=== PATIENT | female | born 1985 | race Caucasian/White ===

== ENCOUNTER 2017-10-27 17:56 | Observation (INO) | payer OTHER ==
--- NOTE | 2017-10-27 18:06 | PDOC ---
Rapid Medical Evaluation Time Seen by Provider: 10/27/17 18:01 Medical Evaluation: 10/27/17 18:04 I have performed a brief in-person evaluation of this patient. The patient presents with a chief complaint of: epigastric pain that radiates to right flank area with vomiting after eating tortilla that she bought in the store 3 hours ago. Reports vomiting x 4. Denies dysuria Pertinent physical exam findings are: NAD crying in triage +epigastric tenderness I have ordered the following: urine preg, urinalysis, labs, iv access The patient will proceed o the Ed for further evaluation.
[2017-10-27] MEDS ORDERED: ONDANSETRON 4 MG/2 ML VIAL IVPB ONE (18:07)
[2017-10-27] MEDS ORDERED: SODIUM CHLORIDE 1,000 ML IV STA (18:07)
[2017-10-27] MEDS ORDERED: ONDANSETRON 4 MG/2 ML VIAL ONE (18:39)
[2017-10-27] MEDS ORDERED: PANTOPRAZOLE SODIUM 40 MG VIAL IVPUSH ONE (18:44)
[2017-10-27] MEDS ORDERED: morphine CARPU-JECT 2 MG/1 ML DISP.SYRIN IVPUSH ONE (18:46)
[2017-10-27] MEDS ORDERED: morphine SULFATE 4 MG/ML VIAL ONE ×2 (18:57→20:50)
[2017-10-27] MEDS ORDERED: PANTOPRAZOLE SODIUM 40 MG/100 ML BAG IVPB ONE (18:58)
--- NOTE | 2017-10-27 18:58 | PDOC ---
Attending Attestation - HPI HPI: 10/27/17 19:46 The patient is a 32-year-old female, with no past medical history, who presents to the ED with right upper quadrant abdominal pain, nausea, and vomiting that began 3 hours prior to presentation. LMP was 1 week ago. - Physicial Exam PE: 10/27/17 19:48 GENERAL: (+)Clearly uncomfortable, dry heaving. Awake, alert, and fully oriented. HEAD: No signs of trauma EYES: PERRLA, EOMI, sclera anicteric, conjunctiva clear ENT: Auricles normal inspection, hearing grossly normal, nares patent, oropharynx clear without exudates. Moist mucosa NECK: Normal ROM, supple, no lymphadenopathy, JVD, or masses LUNGS: Breath sounds equal, clear to auscultation bilaterally. No wheezes, and no crackles HEART: Regular rate and rhythm, normal S1 and S2, no murmurs, rubs or gallops ABDOMEN: (+)RUQ tenderness and +Hadley's sign. No CVA tenderness. Soft, normoactive bowel sounds. No guarding, no rebound. No masses. EXTREMITIES: Normal range of motion, no edema. No clubbing or cyanosis. No cords, erythema, or tenderness NEUROLOGICAL: Cranial nerves II through XII grossly intact. Normal speech, normal gait SKIN: Warm, Dry, normal turgor, no rashes or lesions noted. <Meggan Bautista - Last Filed: 10/27/17 19:46> - Resident Resident Name: BishopEdwardo - ED Attending Attestation I have performed the following: I have examined & evaluated the patient, The case was reviewed & discussed with the resident, I agree w/resident's findings & plan, Exceptions are as noted - Medical Decision Making 10/27/17 18:54 I, Dr. Lenora Linares, DO, attest that this document has been prepared under my direction and personally reviewed by me in its entirety. I further attest, that it accurately reflects all work, treatment, procedures and medical decision -making performed by me. 10/27/17 18:55 32yo female with RUQ pain assoc with n/v -hx of similar 4 months ago in [place] -was eating tortilla today when the pain started -actively vomiting in the room -will send labs -bedside ultrasound + gallstones, +sonographic murphys -concern for acute avinash -will discuss with surgery pending official ultrasound and labs -will medicate for pain, nausea, npo, ivf hydration 10/27/17 20:26 pt with gallstones and sonographic murphys 10/27/17 20:26 family updated abx ordered pt to OR <Lenora Linares - Last Filed: 10/27/17 20:27> Attestations - Attestations Physician Attestation: 10/27/17 19:50 Documentation prepared by Meggan Bautista, acting as chief medical physicist for Lenora Linares DO. <Meggan Bautista - Last Filed: 10/27/17 19:46>
--- NOTE | 2017-10-27 18:58 | PDOC ---
History of Present Illness - General Chief Complaint: Pain, Acute Stated Complaint: NAUSEA/VOMITING Time Seen by Provider: 10/27/17 18:01 History Source: Patient, Spouse Exam Limitations: Language Barrier (Pt Upper Sorbian speaking only. Member of staff interpreted.) - History of Present Illness Travel History: Yes ([place]) Initial Comments: 32 y/o female presenting to [facility] ER via private auto complaining of epigastric and RUQ pain with nausea and vomiting. Symptoms started suddenly approx. 3 hours ago while pt was cleaning her house. Pain has increased in intensity in the interim. No radiation to back. Endorses burning sensation into throat and mouth, as well as chills without fever or diaphoresis. Vomiting described as nonbloody and nonbilious. No constipation or diarrhea. No urinary symptoms. Trialed PO Aleve prior to arrival without relief. H/o similar in [place] four months ago, was evaluated by physician but not given a diagnosis. Surgical history significant for and appendectomy. LMP: 10/20/2017 Medical Hx: Pt denies past medical history. Denies prescription medications. No herbal or other supplements. Surgical Hx: - x1 - Appendectomy Past History - Past Medical History Allergies/Adverse Reactions: Allergies Allergy/AdvReac Type Severity Reaction Status Date / Time No Known Allergies Allergy Verified 10/27/17 18:03 Home Medications: Ambulatory Orders Naproxen Sodium [Aleve] 220 mg PO ONCE 10/27/17 COPD: No - Suicide/Smoking/Psychosocial Hx Smoking History: Never smoked Review of Systems - Review of Systems Constitutional: Yes: Chills. No: Diaphoresis, Fever Respiratory: Yes: Shortness of Breath Cardiac (ROS): Yes: Chest Pain, Lightheadedness ABD/GI: Yes: Vomiting, Indigestion, Abdominal cramping. No: Constipated, Diarrhea, Rectal Bleeding, Tarry Stools : No: Burning, Dysuria, Flank Pain Musculoskeletal: No: Back Pain Integumentary: No: Bruising, Rash, Sweating Neurological: Yes: Paresthesia Hematologic/Lymphatic: No: Easy Bleeding, Easy Bruising *Physical Exam - Vital Signs Last Vital Signs Temp Pulse Resp BP Pulse Ox 97.8 F 102 H 36 H 136/53 98 10/27/17 18:04 10/27/17 18:04 10/27/17 18:04 10/27/17 18:04 10/27/17 18:04 - Physical Exam Comments: Constitutional: Well-developed, well-nourished female in obvious discomfort. Found semi-fowlers in hospital bed. Alert and oriented x4. Answered all questions appropriately and completely. Actively retching and vomiting in room. Nonbloody emesis in bag. HEENT: Normocephalic. No obvious external signs of trauma. Hearing grossly normal. No nasal discharge. No scleral icterus. Conjunctiva moist and not injected. Neck is supple, trachea is midline. Cardiovascular: Tachycardic rate and regular rhythm. No murmur, rubs, clicks, or gallops. Peripheral pulses: Radial pulses full. Respiratory: Tachypnea. Equal chest rise and fall. Clear to auscultation bilaterally. No stridor, no wheezing, no rhonchi. Gastrointestinal: abdomen is tender in epigastric and RUQ regions with guarding. + murphys. No RLQ tenderness. No overlying skin lesions. No pulsatile masses. Neuro: Alert and oriented. Moving all four extremities spontaneously. Skin: Warm, dry, and intact. No bruising, rashes, or other lesions. : No R or L CVA tenderness. Psych: Affect: appropriate. Mood: normal. ED Treatment Course - LABORATORY CBC & Chemistry Diagram: 10/27/17 18:48 10/27/17 18:48 - RADIOLOGY Radiology Studies Ordered: Category Date Time Status GALLBLADDER US [US] Stat Ultrasound 10/27/17 18:44 Ordered - Medications Given in the ED: ED Medications Discontinued Medications Generic Name Dose Route Start Last Admin Trade Name Malcom PRN Reason Stop Dose Admin Ondansetron HCl 4 mg 10/27/17 18:07 10/27/17 18:55 Zofran Injection IVPB 10/27/17 18:08 4 mg ONCE ONE Administration Medical Decision Making - Medical Decision Making *Reviewed nursing notes and prior visit documentation. 32 y/o female complaining of sudden onset RUQ pain with nausea/vomiting x3 hrs. H/o similar 4 months ago w/o diagnosis. Afebrile. Vitals remarkable for tachycardia without hypotension. RUQ tenderness with positive [place] sign. Suspect cholecystitis given physical exam findings. D/D to include ectopic, choledocolethiasis, hepatitis, pancreatitis, gastritis, and PUD. Biliary U/S, CBC, CMP, Lipase, Upreg, UA, PT, PTT, and T/S ordered. Morphine, Zofran, Pepcid , and NS IVFB ordered for symptom relief. Cholelithysis noted on POCUS. Formal Biliary U/S: Cholelithiasis with positive sonographers Hadley sign. GB is normal size CBC unremarkable for leukocytosis. BMP unremarkable for electrolyte derangement or LFT elevation. Lipase not elevated. UA unremarkable for pyuria, nitrites, or leukocyte esterase. Suspect cholecystitis. Pt requested evaluation by surgeon Dr. Chery. He agrees to evaluate the pt. Dr. Chery will admit pt for OR procedure. Requested Cefoxitin 2g and maintenance fluid. *DC/Admit/Observation/Transfer Diagnosis at time of Disposition: Cholecystitis with cholelithiasis Qualifiers: Cholelithiasis location: gallbladder Cholecystitis acuity: unspecified acuity Biliary obstruction: without biliary obstruction Qualified Code(s): K80.10 - Calculus of gallbladder with chronic cholecystitis without obstruction - Discharge Dispostion Condition at time of disposition: Fair - Referrals - Patient Instructions - Post Discharge Activity
[2017-10-27 19:06] LABS: BASO % 0.4 % (0-2.0); EOS % 1.6 % (0-4.5); HEMATOCRIT 38.4 % (32.4-45.2); HEMOGLOBIN 12.7 GM/dL (10.7-15.3); LYMPH % 32.4 % (8-40); MCH 27.7 pg (25.7-33.7); MEAN CELL VOLUME 83.9 fl (80-96); MEAN PLT VOLUME 9.7 fl (7.5-11.1); MONO % 5.4 % (3.8-10.2); NEUT % 60.2 % (42.8-82.8); PLATELET COUNT 250 K/MM3 (134-434); RBC 4.58 M/mm3 (3.60-5.2); RDW 14.1 % (11.6-15.6); WHITE BLOOD COUNT 9.1 K/mm3 (4.0-10.0)
[2017-10-27 19:20] LABS: URINE APPEARANCE CLEAR; URINE BILIRUBIN NEGATIVE (<2.0 mg/dL); URINE COLOR STRAW; URINE GLUCOSE (UA) NEGATIVE (NEGATIVE); URINE KETONE NEGATIVE (NEGATIVE); URINE LEUK ESTERASE NEGATIVE (NEGATIVE); URINE NITRITE NEGATIVE (NEGATIVE); URINE PROTEIN NEGATIVE (NEGATIVE); URINE UROBILINOGEN NEGATIVE mg/dL (0.2-1.0)
[2017-10-27 19:21] LABS: HCG,QUALITATIVE URINE Negative
[2017-10-27 19:50] LABS: ALBUMIN 3.7 g/dl (3.4-5.0); ANION GAP 13 MMOL/L (8-16); BILIRUBIN,TOTAL 0.7 mg/dL (0.2-1.0); BLOOD UREA NITROGEN 9 mg/dL (7-18); CALCIUM 9.2 mg/dL (8.5-10.1); CHLORIDE 112 mmol/L (98-107); CO2 18 mmol/L (21-32); CREATININE 0.8 mg/dL (0.55-1.02); GLUCOSE,RANDOM 92 mg/dL (74-106); LIPASE 128 U/L (73-393); SGOT/AST 30 U/L (15-37); SGPT/ALT 32 U/L (12-78); SODIUM 143 mmol/L (136-145); TOT PROT 7.5 g/dl (6.4-8.2)
[2017-10-27 19:51] LABS: ALK PHOS 66 U/L (45-117)
[2017-10-27] MEDS ORDERED: CEFOXITIN SODIUM 2 GM in DEXTROSE 5%-WATER - 100 ML IVPB ONE (20:22)
[2017-10-27] MEDS ORDERED: SODIUM CHLORIDE 1,000 ML IV SCH (20:30)
[2017-10-27] MEDS ORDERED: morphine CARPU-JECT 4 MG/1 ML DISP.SYRIN IVPUSH ONE (20:37)
[2017-10-27] MEDS ORDERED: IBUPROFEN 600 MG TABLET (FP) PO PRN (20:39)
[2017-10-27] MEDS ORDERED: ONDANSETRON 4 MG/2 ML VIAL IVPUSH PRN (20:39)
[2017-10-27] MEDS ORDERED: ACETAMINOPHEN 325 MG TABLET (FP) PO PRN (20:39)
[2017-10-27] MEDS ORDERED: morphine CARPU-JECT 2 MG/1 ML DISP.SYRIN IVPUSH PRN ×2 (20:39→20:50)
--- NOTE | 2017-10-27 20:57 | HP ---
Admitting History and Physical - Admission Chief Complaint: abdominal pain History of Present Illness: 32 yo female no significant PMH presents to the ED with right upper quadrant abdominal pain, nausea, and vomiting that began 3 hours prior to presentation. She was seen at [facility] days ago but was sent home on antibiotics. She had recurrence of her abdominal pain after every meal. She denied fever and chills. She has a history of gallstones. She had a previous cesarian section but justice other abdominal surgeries. LMP was 1 week ago. We were asked to assess. History Source: Patient, Medical Record Limitations to Obtaining History: No Limitations - Smoking History Smoking history: Never smoked - Alcohol/Substance Use Hx Alcohol Use: No History of Substance Use: reports: None - Social History Usual Living Arrangement: Yes: With Spouse, With Significant Other, With Child ADL: Independent History of Recent Travel: No Home Medications - Allergies Allergies/Adverse Reactions: Allergies Allergy/AdvReac Type Severity Reaction Status Date / Time No Known Allergies Allergy Verified 10/27/17 18:03 - Home Medications Home Medications: Ambulatory Orders Naproxen Sodium [Aleve] 220 mg PO ONCE 10/27/17 Review of Systems - Review of Systems Constitutional: denies: Chills, Fever HENT: denies: Difficult Swallowing, Toothache Neck: denies: Decreased ROM, Pain on Movement Cardiovascular: denies: Chest Pain, Palpitations Respiratory: denies: Cough, SOB Gastrointestinal: reports: Abdominal Pain, Bloating, Indigestion Genitourinary: denies: Discharge, Dysuria Breasts: reports: No Symptoms Reported. denies: Pain Integumentary: denies: Blister, Bruising, Rash, Wound Neurological: denies: Seizure, Syncope Endocrine: denies: Unexplained Weight Gain, Unexplained Weight Loss Hematology/Lymphatic: denies: Easily Bruised, Excessive Bleeding Psychiatric: denies: Anxiety, Depression Physical Examination Vital Signs: Vital Signs Temperature 97.8 F 10/27/17 18:04 Pulse Rate 102 H 10/27/17 18:04 Respiratory Rate 36 H 10/27/17 18:04 Blood Pressure 136/53 10/27/17 18:04 O2 Sat by Pulse Oximetry (%) 98 10/27/17 18:04 Vital Signs Period Temp Pulse Resp BP Sys/Mathew Pulse Ox Last 24 Hr 97.4 F-98.6 F 60-102 17-36 93-136/53-69 98-98 Constitutional: Yes: Well Nourished, No Distress, Calm Eyes: Yes: Conjunctiva Clear, EOM Intact HENT: Yes: Atraumatic, Normocephalic Neck: Yes: Supple, Trachea Midline Cardiovascular: Yes: Regular Rate and Rhythm, S1, S2 Respiratory: Yes: Regular, CTA Bilaterally Gastrointestinal: Yes: Normal Bowel Sounds, Soft, Tenderness (RUQ +, negative murphys). No: Tenderness, Epigastrium, Tenderness, Rebound ...Rectal Exam: Yes: Deferred Renal/: No: CVA Tenderness - Left, CVA Tenderness - Right Musculoskeletal: No: Muscle Pain, Muscle Weakness Extremities: No: Cool, Cyanosis Edema: No Peripheral Pulses WNL: Yes Peripheral Pulses: Left Radial: 2+, Right Radial: 2+, Left Doralis Pedis: 2+, Right Dorsalis Pedis: 2+ Wound/Incision: Yes: Clean/Dry, Well Approximated Neurological: Yes: Alert, Oriented Psychiatric: Yes: Alert, Oriented Labs: CBC, BMP 10/27/17 18:48 10/27/17 18:48 Imaging - Results Ultrasound: Report Reviewed, Image Reviewed (Gallstones with) Problem List - Problems (1) Acute cholecystitis with chronic cholecystitis Assessment/Plan: 32yo female with acute on chronic calculus cholecystitis NPO and IVF hydration IV antibiotics Discussed with patient risks, benefits and alternatives of laparoscopic possible open cholecystectomy, including but not limited to bleeding, infection , injury to adjacent structures, leak or injury, intraabdominal abscess, incisional hernia, need for further procedures, ; alternatives include antibiotics, delayed or no surgery - risks of this include failure of nonoperative therapy, perforation, sepsis, recurrence, . Patient desires to proceed with operation - will take to OR for above. Informed consent signed for same. Code(s): K81.2 - ACUTE CHOLECYSTITIS WITH CHRONIC CHOLECYSTITIS (2) Calculus of gallbladder with acute on chronic cholecystitis Code(s): K80.12 - CALCULUS OF GB W ACUTE AND CHRONIC CHOLECYST W/O OBSTRUCTION Qualifiers: Biliary obstruction: without biliary obstruction Qualified Code(s): K80.12 - Calculus of gallbladder with acute and chronic cholecystitis without obstruction (3) Cholelithiasis Code(s): K80.20 - CALCULUS OF GALLBLADDER W/O CHOLECYSTITIS W/O OBSTRUCTION Qualifiers: Cholelithiasis location: gallbladder Cholecystitis presence: with cholecystitis Cholecystitis acuity: acute and chronic Biliary obstruction: without biliary obstruction Qualified Code(s): K80.12 - Calculus of gallbladder with acute and chronic cholecystitis without obstruction (4) Abdominal pain in female Code(s): R10.9 - UNSPECIFIED ABDOMINAL PAIN
[2017-10-27] MEDS ORDERED: morphine SULFATE 4 MG/ML VIAL IVPUSH PRN (20:58)
[2017-10-27] MEDS ORDERED: LACTATED RINGERS SOLUTION 1,000 ML IV SCH (21:00)
[2017-10-27] MEDS: LACTATED RINGERS SOLUTION 1,000 ML IV SCH ×2 (21:27→21:29)
[2017-10-27 21:56] LABS: INR 1.05 (0.83-1.09); PROTHROMBIN TIME (PATIENT) 11.9 SEC (9.7-13.0)
[2017-10-27 21:59] LABS: ACTIVATED PTT 29.3 SECONDS (25.2-36.5)
[2017-10-28 00:52] VITALS: BMI 27.1
[2017-10-28] MEDS ORDERED: MIDAZOLAM HCL 2 MG/2 ML SINGLE DOSE VIAL ONE (13:20)
--- NOTE | 2017-10-28 13:22 | OP ---
Operative Note - Note: Operative Date: 10/28/17 Pre-Operative Diagnosis: Acute on chronic Cholecystitis Operation: Laparoscopic cholecystectomy Findings: edematous gall bladder, critical view identified. all counts correct Surgeon: David Chery Director Product Development: Michael Ibrahim Anesthesia: General, Local (0.5% marcaine 20ml) Specimens Removed: gallbladder and stones Estimated Blood Loss (mls): 5 Fluid Volume Replaced (mls): 600 (crystalloid)
[2017-10-28] MEDS ORDERED: BUPIVACAINE HCL/PF 0.5% (5MG/ML) 10 ML VIAL ONE (13:32)
[2017-10-28] MEDS ORDERED: DEXAMETHASONE SOD PHOSPHATE 4 MG/1 ML VIAL ONE (13:48)
[2017-10-28] MEDS ORDERED: CEFOXITIN SODIUM 1 GM IVPB ONE (13:50)
[2017-10-28] MEDS ORDERED: PROPOFOL 20 ML ONE (13:50)
[2017-10-28] MEDS ORDERED: ROCURONIUM BROMIDE 50 MG/5 ML VIAL ONE (13:50)
[2017-10-28] MEDS ORDERED: SODIUM CHLORIDE 0.9% P/F 10 ML VIAL IJ ONE (13:53)
[2017-10-28] MEDS ORDERED: ONDANSETRON 4 MG/2 ML VIAL ONE (13:57)
[2017-10-28] MEDS ORDERED: BUPIVACAINE HCL/PF 0.5% (5MG/ML) 10 ML VIAL IJ ONE (14:00)
[2017-10-28] MEDS ORDERED: NEOSTIGMINE METHYLSULFATE 0.5 MG/ML - 10 ML MDV ONE (14:33)
[2017-10-28] MEDS ORDERED: GLYCOPYRROLATE 0.2 MG/1 ML VIAL ONE ×2 (14:33→14:36)
[2017-10-28] MEDS: morphine SULFATE 4 MG/ML VIAL IVPUSH PRN ×2 (17:09→21:46)
[2017-10-29] MEDS: SODIUM CHLORIDE 1,000 ML IV SCH ×2 (00:35→17:29)
[2017-10-29] MEDS: LACTATED RINGERS SOLUTION 1,000 ML IV SCH ×2 (00:35→02:34)
[2017-10-29] MEDS: morphine SULFATE 4 MG/ML VIAL IVPUSH PRN ×2 (03:20→09:03)
[2017-10-29 08:01] LABS: BASO % 0.2 % (0-2.0); EOS % 0.2 % (0-4.5); HEMATOCRIT 35.2 % (32.4-45.2); HEMOGLOBIN 11.4 GM/dL (10.7-15.3); LYMPH % 17.1 % (8-40); MCH 27.6 pg (25.7-33.7); MCHC 32.4 g/dl (32.0-36.0); MEAN CELL VOLUME 85.2 fl (80-96); MEAN PLT VOLUME 9.8 fl (7.5-11.1); MONO % 7.3 % (3.8-10.2); NEUT % 75.2 % (42.8-82.8); PLATELET COUNT 195 K/MM3 (134-434); RBC 4.13 M/mm3 (3.60-5.2); RDW 14.1 % (11.6-15.6); WHITE BLOOD COUNT 9.1 K/mm3 (4.0-10.0)
[2017-10-29 08:28] LABS: ALBUMIN 2.9 g/dl (3.4-5.0); ANION GAP 7 MMOL/L (8-16); BILIRUBIN,TOTAL 0.6 mg/dL (0.2-1.0); BLOOD UREA NITROGEN 4 mg/dL (7-18); CALCIUM 8.6 mg/dL (8.5-10.1); CHLORIDE 107 mmol/L (98-107); CO2 28 mmol/L (21-32); CREATININE 0.6 mg/dL (0.55-1.02); GLUCOSE,RANDOM 86 mg/dL (74-106); POTASSIUM 3.9 mmol/L (3.5-5.1); SGOT/AST 45 U/L (15-37); SGPT/ALT 60 U/L (12-78); SODIUM 142 mmol/L (136-145); TOT PROT 6.1 g/dl (6.4-8.2)
[2017-10-29 08:29] LABS: ALK PHOS 61 U/L (45-117)
[2017-10-29] MEDS ORDERED: SODIUM CHLORIDE 0.9% 500 ML INFUS.BAG IV ONE (10:10)
[2017-10-29 11:16] LABS: BASO % 0.2 % (0-2.0); EOS % 0.3 % (0-4.5); HEMATOCRIT 37.9 % (32.4-45.2); HEMOGLOBIN 12.6 GM/dL (10.7-15.3); LYMPH % 22.9 % (8-40); MCH 28.1 pg (25.7-33.7); MCHC 33.3 g/dl (32.0-36.0); MEAN CELL VOLUME 84.5 fl (80-96); MEAN PLT VOLUME 9.6 fl (7.5-11.1); MONO % 7.6 % (3.8-10.2); PLATELET COUNT 240 K/MM3 (134-434); RBC 4.49 M/mm3 (3.60-5.2); WHITE BLOOD COUNT 12.4 K/mm3 (4.0-10.0)
--- NOTE | 2017-10-29 11:50 | HOSP ---
Subjective - Review of Symptoms Subjective: Called by nurse to evaluate Pt s/p unwitnessed fall in bathroom. Pt was slow to respond and lethargic, c/o back pain, unable to state whether there was LOC or seizure activity. On exam, Pt was significantly tachycardic. Ordered 500 ml NS bolus, EKG, EEG, NCHCT, XR of c-, t-, l-spine, CMP, CBC, troponin, VBG. Dr. Chery notified and attending to case. General: No: Chills, Night Sweats, Fatigue, Malaise, Appetite, Other Pulmonary: No: Dyspnea, Cough, Pleuritic Chest Pain, Other Cardiovascular: Yes: Light Headedness Gastrointestinal: No: Nausea, Vomiting Musculoskeletal: Yes: Back Pain Physical Examination Vital Signs: Vital Signs Temperature 98.2 F 10/29/17 11:07 Pulse Rate 99 H 10/29/17 11:07 Respiratory Rate 18 10/29/17 11:07 Blood Pressure 114/61 10/29/17 11:07 O2 Sat by Pulse Oximetry (%) 97 10/28/17 21:00 Labs: CBC, BMP 10/29/17 10:40 Visit type - Emergency Visit Emergency Visit: No - New Patient This patient is new to me today: Yes Date on this admission: 10/29/17 - Critical Care Critical Care patient: No
[2017-10-29 11:51] LABS: ALBUMIN 3.5 g/dl (3.4-5.0); ANION GAP 11 MMOL/L (8-16); BILIRUBIN,TOTAL 0.7 mg/dL (0.2-1.0); BLOOD UREA NITROGEN 4 mg/dL (7-18); CALCIUM 9.2 mg/dL (8.5-10.1); CHLORIDE 107 mmol/L (98-107); CO2 26 mmol/L (21-32); CREATININE 0.8 mg/dL (0.55-1.02); GLUCOSE,RANDOM 104 mg/dL (74-106); POTASSIUM 3.6 mmol/L (3.5-5.1); SGOT/AST 50 U/L (15-37); SGPT/ALT 74 U/L (12-78); SODIUM 144 mmol/L (136-145)
[2017-10-29 11:52] LABS: ALK PHOS 72 U/L (45-117); TOT PROT 7.2 g/dl (6.4-8.2)
--- NOTE | 2017-10-29 12:07 | DS ---
Physical Examination Vital Signs: Vital Signs Temperature 98.2 F 10/29/17 11:07 Pulse Rate 99 H 10/29/17 11:07 Respiratory Rate 18 10/29/17 11:07 Blood Pressure 114/61 10/29/17 11:07 O2 Sat by Pulse Oximetry (%) 97 10/28/17 21:00 Findings/Remarks: Stable hemodynamically. Tolerating diet, voiding and ambulating. Complaining of back pain. Constitutional: Yes: Well Nourished, No Distress, Calm Eyes: Yes: Conjunctiva Clear, EOM Intact HENT: Yes: Atraumatic, Normocephalic Neck: Yes: Supple, Trachea Midline Cardiovascular: Yes: Regular Rate and Rhythm, S1, S2 Respiratory: Yes: Regular, CTA Bilaterally Gastrointestinal: Yes: Normal Bowel Sounds, Soft ...Rectal Exam: Yes: Deferred Renal/: No: CVA Tenderness - Left, CVA Tenderness - Right Extremities: No: Cool, Cyanosis Edema: No Peripheral Pulses WNL: Yes Peripheral Pulses: Left Radial: 2+, Right Radial: 2+, Left Doralis Pedis: 2+, Right Dorsalis Pedis: 2+ Wound/Incision: Yes: Clean/Dry, Well Approximated, Dressing Dry and Intact Neurological: Yes: Alert, Oriented Psychiatric: Yes: Alert, Oriented Labs: CBC, BMP 10/29/17 10:40 10/29/17 10:40 Discharge Summary Reason For Visit: ACUTE CHOLECYSTITIS Current Active Problems Abdominal pain in female (Acute) Acute cholecystitis with chronic cholecystitis (Acute) Calculus of gallbladder with acute on chronic cholecystitis (Acute) Cholecystitis with cholelithiasis (Acute) Cholelithiasis (Acute) Procedures: Principal: Laparoscopic Cholecystectomy Other Procedures: Xray, CT scan head Hospital Course: Admitted for abdominal pain secondary to cholecystitis. She was taken for an uneventful procedure. stable post operatively. complaining of back pain. Fall work up negative (xray and CTscan). Discharged home for f/u with PMD. Condition: Improved - Instructions Diet, Activity, Other Instructions: Postoperative instructions: You had a laparoscopic Cholecystectomy on 10/28/[address] David Chery of [facility]. Activity: Resume your usual activities gradually, but no heavy exertion or lifting more than 10-15 pounds for 1 month. Remove dressings 48 hours after surgery; sticky tapes underneath will fall off by themselves. You may shower daily starting then, just pat the incision areas dry. No bath or swimming until skin incisions have healed. Eat lightly at first, but advance to your usual diet as tolerated. Pain: For pain, you may use and alternate Tylenol (acetaminophen) 1-2 pills and/ or ibuprofen 200 mg (1-3 pills) every 6 hours each as needed; this means that you can take one OR the other at 3-hour intervals. If you are prescribed a Tylenol/narcotic combination for severe pain, use it instead of plain Tylenol as needed and switch back when your pain starts decreasing. Do not take more than 4000mg of acetaminophen in a day. Take medications as prescribed or indicated on the labeling. Follow-up: Call Dr. Chery's office at [phone] to make your postop appointment (Tuesday in approximately 2 weeks after surgery). Clinic is held in the [facility] on the first floor of [facility]. Call the office if you have: * increasing pain not responsive to pain medication * fever of 101F or higher * vomiting * unusual or increasing bleeding or drainage from wounds * increasing redness or swelling at wound sites * inability to urinate Also, see your primary medical doctor within 1-2 weeks. Disposition: HOME - Home Medications Comprehensive Discharge Medication List: Ambulatory Orders Naproxen Sodium [Aleve] 220 mg PO ONCE 10/27/17 Amox-Tr/K Cl [Augmentin - 875Mg Tablet] 1 tab PO BID #14 tablet 10/29/17 Oxycodone HCl/Acetaminophen [Percocet 5/325 -] 1 tab PO Q6H 3 Days #25 tab MDD 5 10/29/17
[2017-10-29] MEDS ORDERED: KETOROLAC TROMETHAMINE 30 MG/1 ML VIAL IVPUSH ONE (12:49)
[2017-10-29] MEDS ORDERED: ACETAMINOPHEN 1000 MG/100 ML VIAL (NON FORMULARY) IVPB ONE (12:50)
[2017-10-29] MEDS ORDERED: ONDANSETRON 4 MG/2 ML VIAL IVPUSH PRN (12:50)
--- NOTE | 2017-10-29 13:31 | PN ---
Progress Note (short form) - Note Progress Note: Unwitnessed fall reported this morning by RN. Patient was found on the ground while trying to use the bathroom. vitals were stable except sinus tachycardia confirmed on 12L ECG 110bpm, She reported right ankle pain and lower back pain. CT head, xray back was negative. Labs were also unremarkable. Physical exam had minimal ankle tenderness and low back discomfort. Arvind wrap placed on ankle. opiate analgesia replaced with non-opiate/ NSAID and analgesia. Likely just an ankle sprain will hold D/C for today. Consider transfer to hospitalist if additional symptoms arise. Problem List - Problems (1) Acute cholecystitis with chronic cholecystitis Code(s): K81.2 - ACUTE CHOLECYSTITIS WITH CHRONIC CHOLECYSTITIS (2) Calculus of gallbladder with acute on chronic cholecystitis Code(s): K80.12 - CALCULUS OF GB W ACUTE AND CHRONIC CHOLECYST W/O OBSTRUCTION Qualifiers: Biliary obstruction: without biliary obstruction Qualified Code(s): K80.12 - Calculus of gallbladder with acute and chronic cholecystitis without obstruction (3) Cholelithiasis Code(s): K80.20 - CALCULUS OF GALLBLADDER W/O CHOLECYSTITIS W/O OBSTRUCTION Qualifiers: Cholelithiasis location: gallbladder Cholecystitis presence: with cholecystitis Cholecystitis acuity: acute and chronic Biliary obstruction: without biliary obstruction Qualified Code(s): K80.12 - Calculus of gallbladder with acute and chronic cholecystitis without obstruction (4) Abdominal pain in female Code(s): R10.9 - UNSPECIFIED ABDOMINAL PAIN
[2017-10-29] MEDS ORDERED: KETOROLAC TROMETHAMINE 15 MG/ML VIAL IVPUSH PRN (16:12)
[2017-10-29] MEDS ORDERED: ACETAMINOPHEN 325 MG TABLET (FP) PO PRN (16:12)
--- NOTE | 2017-10-29 17:06 | PN ---
Progress Note (short form) - Note Progress Note: Anesthesia post op note, POD#1. S/P lap cholecystectomy . VSS. No apparent post anesthesia complications. Signed off.
[2017-10-29] MEDS: IBUPROFEN 600 MG TABLET (FP) PO PRN (17:46)
[2017-10-30] MEDS: IBUPROFEN 600 MG TABLET (FP) PO PRN ×2 (01:37→06:15)
[2017-10-30 08:05] LABS: BASO % 0.5 % (0-2.0); EOS % 2.1 % (0-4.5); HEMATOCRIT 32.3 % (32.4-45.2); HEMOGLOBIN 10.7 GM/dL (10.7-15.3); LYMPH % 38.9 % (8-40); MEAN CELL VOLUME 84.9 fl (80-96); MEAN PLT VOLUME 9.8 fl (7.5-11.1); NEUT % 51.5 % (42.8-82.8); PLATELET COUNT 175 K/MM3 (134-434); RBC 3.81 M/mm3 (3.60-5.2); RDW 14.1 % (11.6-15.6); WHITE BLOOD COUNT 7.8 K/mm3 (4.0-10.0)
--- NOTE | 2017-10-30 10:26 | DS ---
Physical Examination Vital Signs: Vital Signs Temperature 98.2 F 10/30/17 07:52 Pulse Rate 68 10/30/17 07:52 Respiratory Rate 18 10/30/17 07:52 Blood Pressure 112/64 10/30/17 07:52 O2 Sat by Pulse Oximetry (%) 98 10/29/17 21:00 Findings/Remarks: Stable this morning. May be discharged Constitutional: Yes: Well Nourished, No Distress, Calm Eyes: Yes: Conjunctiva Clear, EOM Intact HENT: Yes: Atraumatic, Normocephalic Neck: Yes: Supple, Trachea Midline Cardiovascular: Yes: Regular Rate and Rhythm, S1, S2 Respiratory: Yes: Regular, CTA Bilaterally Gastrointestinal: Yes: Normal Bowel Sounds, Soft. No: Tenderness Renal/: No: CVA Tenderness - Left, CVA Tenderness - Right Extremities: No: Cool, Cyanosis Edema: No Peripheral Pulses WNL: Yes Wound/Incision: Yes: Clean/Dry, Well Approximated Neurological: Yes: Alert, Oriented Psychiatric: Yes: Alert, Oriented Labs: CBC, BMP 10/30/17 06:10 10/29/17 10:40 Discharge Summary Reason For Visit: ACUTE CHOLECYSTITIS Current Active Problems Abdominal pain in female (Acute) Acute cholecystitis with chronic cholecystitis (Acute) Calculus of gallbladder with acute on chronic cholecystitis (Acute) Cholecystitis with cholelithiasis (Acute) Cholelithiasis (Acute) Right ankle strain (Acute) Procedures: Principal: Laparoscopic Cholecystectomy Hospital Course: Admitted for abdominal pain secondary to cholecystitis. She was taken for an uneventful procedure. stable post operatively. complaining of back pain. Fall work up negative (xray and CTscan). Discharged home for f/u with PMD. Condition: Improved - Instructions Diet, Activity, Other Instructions: Postoperative instructions: You had a laparoscopic Cholecystectomy on 10/28/[address] David Chery of [facility]. Activity: Resume your usual activities gradually, but no heavy exertion or lifting more than 10-15 pounds for 1 month. Remove dressings 48 hours after surgery; sticky tapes underneath will fall off by themselves. You may shower daily starting then, just pat the incision areas dry. No bath or swimming until skin incisions have healed. Eat lightly at first, but advance to your usual diet as tolerated. Pain: For pain, you may use and alternate Tylenol (acetaminophen) 1-2 pills and/ or ibuprofen 200 mg (1-3 pills) every 6 hours each as needed; this means that you can take one OR the other at 3-hour intervals. If you are prescribed a Tylenol/narcotic combination for severe pain, use it instead of plain Tylenol as needed and switch back when your pain starts decreasing. Do not take more than 4000mg of acetaminophen in a day. Take medications as prescribed or indicated on the labeling. Follow-up: Call Dr. hCery's office at [phone] to make your postop appointment (Tuesday in approximately 2 weeks after surgery). Clinic is held in the [facility] on the first floor of [facility]. Call the office if you have: * increasing pain not responsive to pain medication * fever of 101F or higher * vomiting * unusual or increasing bleeding or drainage from wounds * increasing redness or swelling at wound sites * inability to urinate Also, see your primary medical doctor within 1-2 weeks. Disposition: HOME - Home Medications Comprehensive Discharge Medication List: Ambulatory Orders Naproxen Sodium [Aleve] 220 mg PO ONCE 10/27/17 Amox-Tr/K Cl [Augmentin - 875Mg Tablet] 1 tab PO BID #14 tablet 10/29/17 Ibuprofen [Motrin -] 600 mg PO TID #21 tablet 10/29/17 Oxycodone HCl/Acetaminophen [Percocet 5/325 -] 1 tab PO Q6H 3 Days #25 tab MDD 5 10/29/17
[2017-10-30 11:07] VITALS: PULSE 64
[2017-10-30 12:19] VITALS: BP 116/60; TEMP 98
--- NOTE | 2017-10-30 15:39 | OP ---
DATE OF OPERATION: 10/28/2017 PREOPERATIVE DIAGNOSIS: Lzdld-[id number] cholecystitis. POSTOPERATIVE DIAGNOSIS: Phmri-xy-rgigxlf cholecystitis. PROCEDURE: Laparoscopic cholecystectomy. ATTENDING SURGEON: David Chery MD DIRECTOR OF INSTRUCTIONAL TECHNOLOGY: Michael Ibrahim MD ANESTHESIA: General with local; local consisted of 0.5% Marcaine, a total of 20 mL given in an area block fashion. ANESTHESIOLOGIST: Parth Quintero MD SPECIMEN SENT: Gallbladder with stones. ESTIMATED BLOOD LOSS: 5 mL. INTRAVENOUS FLUID: 600 mL. INDICATION: The patient is a 32-year-old female with a history of acute cholecystitis. She was seen at [facility] days before, sent home with antibiotics. She was counseled regarding risks, benefits, and alternatives of surgical cholecystectomy; signed informed consent; was taken for the procedure. PROCEDURE: The patient was brought to the operating room, placed in supine position on the operating table with the left arm extended at 90 degrees perpendicular to the body's axis and the right arm tucked. She was prepped and draped. She had lower extremity SCDs placed to compression. She was induced with anesthesia and endotracheally intubated. The point at which we began shave, prep, and drape of the anterior abdominal wall, she was induced with general anesthesia and endotracheally intubated without incident by Anesthesia. A formal timeout was completed, identifying the operative site and procedure. We proceeded then with supraumbilical approach after surgical marking to the umbilicus for Roman entry into the abdomen. It was incised with a 15 blade scalpel, deepened and widened through subcutaneous tissue. Care was taken to identify the midline fascia; it was opened, elevated, and then a phjqso-ps-fjdyd with 0 Vicryl was placed for formal ablation of the space. Pneumoperitoneum was established to 15 mmHg, at which point we began first with exploration of the abdomen. The gallbladder was identified. The remainder of the entry appeared to be atraumatic. The gallbladder was grasped and retracted superiorly, at which point additional trocars were installed at the subxiphoid position and 2 in the right lateral abdomen. This was done under direct visualization. We then proceeded with retraction of the gallbladder and development of the cystic planes with the cystic duct and artery. They were developed and then they were controlled with 5-mm Endoclip. Once placed, the structures could be transected. The gallbladder was then elevated from the bed of the liver using Bovie cautery from its cystic structures to the dome. The gallbladder was then removed with an EndoCatch bag after re-sighting the camera in the subxiphoid position from the Roman 12-mm trocar at the umbilicus. Once complete, the site was irrigated. There was minimal bleeding. A small amount of ascitic fluid was suctioned from the abdomen, at which point we then returned and relieved the pneumoperitoneum after removing trocars under direct visualization. The skin was closed at the 5-mm port sites with 4-0 Vicryl interrupted fashion at the skin and a running subcuticular closure of the umbilical Roman entry after tying and ablating the Roman entry port with 0 Vicryl. Skin was cleaned, sterile dressings were placed, including benzoin and Steri-Strips, gauze sponges, and Tegaderm. The patient was awoken from general anesthesia, having tolerated the procedure well. All counts were correct. Specimen was sent for final pathologic diagnosis. MD VALDO Foy/[id number]
--- NOTE | 2017-10-31 10:44 | EKG ---
Test Reason : Blood Pressure : / mmHG Vent. Rate : 110 BPM Atrial Rate : 110 BPM P-R Int : 140 ms QRS Dur : 076 ms QT Int : 310 ms P-R-T Axes : 067 055 040 degrees QTc Int : 419 ms SINUS TACHYCARDIA OTHERWISE NORMAL ECG NO PREVIOUS ECGS AVAILABLE Confirmed by TONNY GLOVER, CECILE ([id number]) on 10/31/2017 10:44:43 AM Referred By: Jalyn PRITCHETT Confirmed By:CECILE LANCASTER MD
--- NOTE | 2017-11-01 12:25 | PATH ---
Surgical Pathology Report Patient Name: KAYLEIGH HERNANDEZ [facility]. Rec. #: [id number] /Age/Gender: 1985 (Age: 32) / F Account: [id number] Location: [facility]/SURG Taken: 10/28/2017 Received: 10/31/2017 Reported: 11/01/2017 Physicians: David Chery M.D. Specimen(s) Received GALLBLADDER AND STONES Clinical History Acute cholecystitis Final Diagnosis GALLBLADDER AND STONES, LAPAROSCOPIC CHOLECYSTECTOMY: CHRONIC CHOLECYSTITIS, CHOLESTEROLOSIS, AND CHOLELITHIASIS. Electronically Signed Richelle Barrientos M.D. Gross Description Received in formalin, labeled "gallbladder," is a 7.5 x 3.8 x 3.0 cm. gallbladder with a 0.2 cm. in length portion of cystic duct attached. The outer surface is green and varies from smooth to shaggy. The lumen contains green, tenacious bile as well as abundant yellow, irregular choleliths ranging from 0.1-1.3 cm in greatest dimension. The mucosa is dark green and velvety. The wall of the gallbladder averages 0.1 cm. in thickness. Underwater [employer] sections are submitted in one cassette. /10/31/201710/31/2017
== END 2017-10-30 11:54 | disposition home or self-care (01) ==
LOC: JER 17:56 → JASUSAT 20:50 → JER 23:00 → JASUSAT 23:05 → J8W 23:05 → JASUSAT 23:38 → J8W 10-28 00:17
PROC: 3E03329 Introduction of Other Anti-infective into Peripheral Vein, Percutaneous Approach (ICD-10-PCS; 2017-10-28)
PROC: 3E0333Z Introduction of Anti-inflammatory into Peripheral Vein, Percutaneous Approach (ICD-10-PCS; 2017-10-28)
PROC: 3E033NZ Introduction of Analgesics, Hypnotics, Sedatives into Peripheral Vein, Percutaneous Approach (ICD-10-PCS; 2017-10-28)
PROC: 3E033GC Introduction of Other Therapeutic Substance into Peripheral Vein, Percutaneous Approach (ICD-10-PCS; 2017-10-28)
PROC: 0FT44ZZ Resection of Gallbladder, Percutaneous Endoscopic Approach (ICD-10-PCS; principal; 2017-10-28 13:30)
DX: K80.12 Calculus of gallbladder with acute and chronic cholecystitis without obstruction (principal)
CPT/HCPCS: 36415; 70450-TC; 72050-TC-FY; 72070-TC-FY; 72100-TC-FY; 73630-TC-RT-FY; 76705-TC; 80053; 81003; 83690; 84484; 84703; 85025; 85610; 85730; 86850; 86900; 86901; 88304-TC; 93005; 93010; 94010; 94760; 96360; 96374; 96375; 96376; 99283-25; G0378; J0131; J7030

== ENCOUNTER 2021-06-26 09:59 | Emergency (ER) | payer OTHER ==
[2021-06-26 10:48] VITALS: BP 134/98; PULSE 90; TEMP 97.3; BMI 23.8
[2021-06-26] MEDS ORDERED: CYCLOBENZAPRINE HCL 5 MG TABLET PO ONE (11:23)
[2021-06-26] MEDS ORDERED: CYCLOBENZAPRINE HCL 5 MG TABLET ONE (11:32)
[2021-06-26] MEDS ORDERED: IBUPROFEN 600 MG TABLET (FP) PO ONE ×2 (12:53→12:55)
[2021-06-26] MEDS ORDERED: diazePAM 5 MG TABLET PO ONE (14:10)
[2021-06-26] MEDS ORDERED: diazePAM 5 MG TABLET ONE (14:48)
== END 2021-06-26 16:10 | disposition home or self-care (01) ==
LOC: JER 09:59
DX: M54.2 Cervicalgia (principal); V49.50XA Passenger injured in collision with unspecified motor vehicles in traffic accident, initial encounter
CPT/HCPCS: 72125-TC; 72128-TC; 72131-TC; 72170-TC-FY; 73552-TC-RT-FY; 73562-TC-RT-FY; 84703; 99285-25